=== PATIENT | female | born 1940 | race Caucasian/White ===

== ENCOUNTER 2018-01-16 15:06 | Emergency (ER) | payer MEDICARE ==
--- NOTE | 2018-01-16 15:55 | RAD ---
PA AND LATERAL VIEWS OF CHEST: Date: 01/16/18 HISTORY: Cough. FINDINGS/IMPRESSION: The heart size is normal. The lungs are expanded without lobar consolidation, pneumothoraces, or pleu ral effusions. There is confluence of interstitial markings in the right lower lung. This may represe nt a developing infiltrate/pneumonia. No pneumothoraces or pleural effusions are seen. There are dege nerative changes in the spine. POS: [facility]
[2018-01-16 16:11] LABS: #Basophils 0.1 thou/uL (0.0-0.2); #Lymphocytes 0.9 thou/uL (1.20-3.40); #Monocytes 1.4 thou/uL (0.11-0.59); #Neutrophils 13.5 thou/uL (1.40-6.50); %Basophils 0.8 % (0.0-1.0); %Eosinophils 0.2 % (0.0-10.0); %Lymphocytes 5.6 % (21.0-51.0); %Monocytes 8.8 % (0.0-10.0); %Neutrophils 84.7 % (42.0-75.0); Hemoglobin 13.2 g/dL (12.0-16.0); Mean Corpuscular HGB CONC 34.8 g/dL (32.0-36.0); Mean Corpuscular Hemoglobin 32.7 pg (27.0-31.0); Mean Corpuscular Volume 93.9 fL (78.0-98.0); Mean Platelet Volume 6.7 fL (7.4-10.4); Platelet Count 319 thou/uL (130-400); Red Blood Cell (RBC) Count 4.05 mill/uL (4.20-5.40); White Blood Cell (WBC) Count 15.9 thou/uL (4.8-10.8)
[2018-01-16 16:24] LABS: ALT (SGPT) 10 U/L (8-55); AST (SGOT) 11 U/L (5-34); Albumin 4.1 g/dL (3.4-4.8); Alkaline Phosphatase 79 U/L (40-150); Anion Gap 19 mmol/L (10-20); BUN (Urea Nitrogen) 13 mg/dL (9.8-20.1); Bilirubin, Total 0.9 mg/dL (0.2-1.2); Calc. Creatinine Clearance 0 mL/min (70-130); Calcium 9.8 mg/dL (7.8-10.44); Carbon Dioxide 19 mmol/L (23-31); Chloride 100 mmol/L (98-107); Estimated GFR-MDRD 56; Globulin 4.5 g/dL (2.4-3.5); Glucose 135 mg/dL (83-110); Protein, Total 8.6 g/dL (6.0-8.3); Sodium 134 mmol/L (136-145)
[2018-01-16 16:25] LABS: CKMB 0.2 ng/mL (0-6.6); Troponin I Less than 0.010 ng/mL (< 0.028)
[2018-01-16] MEDS ORDERED: Benzonatate 100 MG CAP ONE (16:28)
[2018-01-16] MEDS ORDERED: Dexamethasone 4 MG TAB ONE (16:28)
[2018-01-16] MEDS ORDERED: Amoxicillin/Potassium Clav 875 MG TAB ONE (16:28)
== END 2018-01-16 16:45 | disposition home or self-care (01) ==
LOC: MADERS 15:06
DX: J18.9 Pneumonia, unspecified organism (principal); I10 Essential (primary) hypertension; E03.9 Hypothyroidism, unspecified; K21.9 Gastro-esophageal reflux disease without esophagitis; M81.0 Age-related osteoporosis without current pathological fracture; Z79.899 Other long term (current) drug therapy; Z79.82 Long term (current) use of aspirin
CPT/HCPCS: 36415; 71046; 80053; 82553; 84443; 84484; 85025; 87804; 93005; J8540

== ENCOUNTER 2018-02-19 13:17 | Outpatient (CLI) | payer MEDICARE ==
--- NOTE | 2018-02-19 15:50 | RAD ---
CHEST TWO VIEWS: History: Pneumonia. Comparison: 01-16-18 Comparison: Cardiac silhouette is unremarkable. Pulmonary vasculature remains slightly engorged. Medi astinum is midline. Infiltrate at the right base on the prior study is no longer visible. No confluen t airspace consolidation, pneumothorax, or pleural fluid. IMPRESSION: Interval resolution right basilar infiltrate. Other findings are stable. POS: [facility]
== END 2018-02-19 13:18 | disposition home or self-care (01) ==
LOC: MADRAD 13:17
PROVIDERS: ATTEND Family Medicine
DX: J18.1 Lobar pneumonia, unspecified organism (principal); R91.8 Other nonspecific abnormal finding of lung field
CPT/HCPCS: 71046

== ENCOUNTER 2018-03-04 10:45 | Emergency (ER) | payer MEDICARE ==
--- NOTE | 2018-03-04 11:53 | RAD ---
LEFT ANKLE THREE VIEWS: History: Injury. Fall. Left ankle pain. FINDINGS/IMPRESSION: The ankle mortise is maintained. Soft tissue swelling is present. No acute fracture or dislocation is identified. Calcaneal spurs are present. POS: [facility]
--- NOTE | 2018-03-04 11:55 | RAD ---
LEFT FOOT THREE VIEWS: History: Injury. Fall. Left foot pain. FINDINGS/IMPRESSION: No acute fracture or dislocation is seen. A plantar calcaneal spur is noted. POS: [facility]
== END 2018-03-04 11:49 | disposition home or self-care (01) ==
LOC: MADERS 10:45
DX: S93.402A Sprain of unspecified ligament of left ankle, initial encounter (principal); S93.602A Unspecified sprain of left foot, initial encounter; I10 Essential (primary) hypertension; E03.9 Hypothyroidism, unspecified; K21.9 Gastro-esophageal reflux disease without esophagitis; M81.0 Age-related osteoporosis without current pathological fracture; X50.1XXA Overexertion from prolonged static or awkward postures, initial encounter

== ENCOUNTER 2021-01-19 15:07 | Emergency (ER) | payer MEDICARE | END 2021-01-19 16:50 | disposition home or self-care (01) | LOC: MADERS 15:07 | DX: S32.591A Other specified fracture of right pubis, initial encounter for closed fracture (principal); I10 Essential (primary) hypertension; E03.9 Hypothyroidism, unspecified; K21.9 Gastro-esophageal reflux disease without esophagitis; Z79.899 Other long term (current) drug therapy; W18.30XA Fall on same level, unspecified, initial encounter; Y93.01 Activity, walking, marching and hiking | CPT/HCPCS: 70450; 72170 ==

== ENCOUNTER 2021-02-15 15:04 | Outpatient (CLI) | payer MEDICARE | END 2021-02-15 15:05 | disposition home or self-care (01) | LOC: MADLAB 15:04 → MADRAD 15:05 | PROVIDERS: ATTEND Family Medicine | DX: S32.591A Other specified fracture of right pubis, initial encounter for closed fracture (principal) ==

== ENCOUNTER 2021-04-07 15:35 | Outpatient (CLI) | payer MEDICARE | END 2021-04-07 15:36 | disposition home or self-care (01) | LOC: MADRAD 15:35 | PROVIDERS: ATTEND Family Medicine | DX: S32.591D Other specified fracture of right pubis, subsequent encounter for fracture with routine healing (principal) ==

== ENCOUNTER 2021-08-14 16:44 | Emergency (ER) | payer MEDICARE ==
[2021-08-14] MEDS ORDERED: Meclizine HCl 25 MG TAB ONE (17:57)
[2021-08-14 17:58] LABS: #Basophils 0.1 thou/uL (0.0-0.2); #Eosinphils 0.2 thou/uL (0.0-0.7); #Monocytes 0.9 thou/uL (0.11-0.59); #Neutrophils 7.4 thou/uL (1.40-6.50); %Basophils 1.2 % (0.0-1.0); %Eosinophils 2.3 % (0.0-10.0); %Monocytes 8.2 % (0.0-10.0); %Neutrophils 69.3 % (42.0-75.0); Hemoglobin 14.2 g/dL (12.0-16.0); Mean Corpuscular HGB CONC 32.8 g/dL (32.0-36.0); Mean Corpuscular Hemoglobin 31.6 pg (27.0-31.0); Mean Corpuscular Volume 96.3 fL (78.0-98.0); Mean Platelet Volume 8.1 fL (7.4-10.4); Platelet Count 287 thou/uL (130-400); White Blood Cell (WBC) Count 10.7 thou/uL (4.8-10.8)
[2021-08-14 18:12] LABS: ALT (SGPT) 10 U/L (8-55); AST (SGOT) 16 U/L (5-34); Albumin 4.3 g/dL (3.4-4.8); Alkaline Phosphatase 53 U/L (40-110); Anion Gap 18 mmol/L (10-20); BUN (Urea Nitrogen) 10 mg/dL (9.8-20.1); Bilirubin, Total 0.6 mg/dL (0.2-1.2); Calc. Creatinine Clearance 0 mL/min (70-130); Calcium 9.9 mg/dL (7.8-10.44); Carbon Dioxide 25 mmol/L (23-31); Chloride 101 mmol/L (98-107); Glucose 124 mg/dL (83-110); Potassium 4.4 mmol/L (3.5-5.1); Protein, Total 8.3 g/dL (5.8-8.1); Sodium 140 mmol/L (136-145)
[2021-08-14] MEDS ORDERED: Aspirin Chewable 81 MG TAB ONE (19:33)
[2021-08-14] MEDS ORDERED: Ondansetron PF 4 MG/2 ML Vial ONE (19:33)
[2021-08-14] MEDS ORDERED: Lidocaine Viscous Sol 2% 15 ml UD Cup ONE (19:33)
[2021-08-14] MEDS ORDERED: Mag-Al Plus 1200 MG/1200 MG/120 MG/30 ML UDCUP ONE (19:33)
== END 2021-08-14 21:54 | disposition short-term general hospital (02) ==
LOC: MADERS 16:44
DX: R42 Dizziness and giddiness (principal); R26.0 Ataxic gait; R29.700 NIHSS score 0; I10 Essential (primary) hypertension; E03.9 Hypothyroidism, unspecified; K21.9 Gastro-esophageal reflux disease without esophagitis; E78.5 Hyperlipidemia, unspecified; M81.0 Age-related osteoporosis without current pathological fracture; Z79.899 Other long term (current) drug therapy
CPT/HCPCS: 36416; 70450; 71045; 80053; 84484; 85025; 93005; 96374; J2405

== ENCOUNTER 2022-07-18 16:50 | Outpatient (CLI) | payer MEDICARE | END 2022-07-18 16:51 | disposition home or self-care (01) | LOC: MADRAD 16:50 | PROVIDERS: ATTEND Internal Medicine | DX: J45.40 Moderate persistent asthma, uncomplicated (principal); J30.9 Allergic rhinitis, unspecified; J43.9 Emphysema, unspecified | CPT/HCPCS: 70220; 71046 ==

== ENCOUNTER 2022-07-26 16:48 | Outpatient (CLI) | payer MEDICARE | END 2022-07-26 16:49 | disposition home or self-care (01) | LOC: MADCT 16:48 | PROVIDERS: ATTEND Internal Medicine | DX: R91.1 Solitary pulmonary nodule (principal); J98.4 Other disorders of lung; I25.84 Coronary atherosclerosis due to calcified coronary lesion | CPT/HCPCS: 71250 ==